=== PATIENT | female | born 1975 | race Two or more races ===

== ENCOUNTER 2019-05-13 11:22 | Emergency (ER) | payer MEDICAID ==
[~2019-05-13] VITALS: Ht 154.9 cm; Wt 77.1 kg
--- NOTE | 2019-05-13 11:40 | NUR ---
ED Nurse Note: PT AMBULATED TO ED C/O RIGHT HEEL PAIN S/P STEPPING ONTO GLASS AT [facility]. PT HAS SLIGHT FACIAL GRIMACING. FOOT IS DRESSED.
[2019-05-13 11:47] VITALS: BP 140/80
--- NOTE | 2019-05-13 11:51 | Emergency Room Report ---
History of Present Illness General Chief Complaint: Puncture Wound Source: Patient Present Illness HPI Patient is a 43-year-old female denies any significant past medical history who presents to the ER complaining of laceration to her right foot. Patient states that she was at the [facility] and a piece of glass broke cutting the bottom of her right foot. She states that they cleaned her wound at [facility]. Her last tetanus shot was 3 years ago. She complains of localized pain to the area. She is ambulating. Allergies: Coded Allergies: No Known Allergies (Unverified , 05/13/19) Patient History Past Medical History: none Past Surgical History: Social History: Denies: smoking, alcohol use, drug use Now: No Immunizations: UTD Review of Systems All Other Systems: negative except mentioned in HPI Physical Exam Vital Signs Date Time Temp Pulse Resp B/P (MAP) Pulse Ox O2 Delivery O2 Flow Rate FiO2 05/13/19 11:40 98.1 78 16 140/80 (100) 99 Room Air Sp02 EP Interpretation: reviewed, normal General Appearance: no apparent distress, alert, GCS 15, non-toxic Head: normocephalic, atraumatic Eyes: bilateral eye normal inspection, bilateral eye PERRL ENT: hearing grossly normal, normal pharynx, no angioedema, normal voice Neck: full range of motion, supple/symm/no masses Respiratory: chest non-tender, lungs clear, normal breath sounds, speaking full sentences Cardiovascular #1: regular rate, rhythm, no edema Gastrointestinal: normal bowel sounds, non tender, soft, non-distended, no guarding, no rebound Rectal: deferred Genitourinary: normal inspection, no CVA tenderness Musculoskeletal: back normal, normal range of motion, calf tenderness, other - 4 cm superficial linear laceration to right plantar heel, no active bleeding, no obvious foreign body. Neurologic: alert, motor strength/tone normal, oriented x3, sensory intact, responsive, speech normal Psychiatric: judgement/insight normal, memory normal, mood/affect normal, no suicidal/homicidal ideation Skin: no rash Lymphatic: no adenopathy Procedures Laceration/Wound Repair Laceration/Wound Repair : Consent: Verbal Wound Location: other - foot Wound Length (cm): 4 Wound Explored: clean Wound Debrided: None Wound Repaired With: Dermabond Patient Tolerated: Well Complications: None Medical Decision Making Diagnostic Impression: Primary Impression: Laceration ER Course Patient's wound irrigated and Dermabond applied. Patient declining any pain medication in the ER. Patient started on Augmentin due to her puncture wound. After discussing risks and benefits of further diagnostics, treatment plans, as well as indications for and risks of admission, the patient is agreeable to being discharged home. I have explained that their evaluation and treatment in the emergency department today is an important step towards them achieving better health but that their evaluation today is not intended to replace further evaluation and treatment by a physician in their local clinic. I have explained that while the current findings suggest no immediate life threatening emergency they will require further evaluation and treatment by a physician of their choice in their area. They understand that it will be necessary for them to review the final reports of their ED visit with their clinic physician. We have reviewed indications for return to the Emergency Department. I have explained that additional time may need to pass and/or additional testing as an outpatient may be necessary before a definitive diagnosis can be made. They tell me they are willing to follow up as instructed within the timeframe I recommend. They appear to understand what we discussed. Additionally they understand that if they are unable to be seen by an outpatient physician they are welcome, and in fact should, return to the Emergency Department for a repeat evaluation. The patient is stable at time of discharge. Other X-Ray Diagnostic Results Other X-Ray Diagnostic Results : X-Ray ordered: R foot # of Views/Limited Vs Complete: 2 View Indication: Other - RO foreign body EP Interpretation: Yes Interpretation: no dislocation, no fractures, other - no foreign body Impression: No acute disease Last Vital Signs Date Time Temp Pulse Resp B/P (MAP) Pulse Ox O2 Delivery O2 Flow Rate FiO2 05/13/19 11:47 98.1 75 16 140/80 99 Room Air Disposition: HOME, SELF-CARE Condition: Stable Scripts Amoxicillin/Potassium Clav 875-125* (AUGMENTIN 875-125 TABLET*) 1 Each Tablet 1 TAB ORAL TWICE A DAY for 7 Days, #14 TAB Prov: Theresa Hunt M.D. 05/13/19 Additional Instructions: Patient discharged in stable improved condition with outpatient follow-up Theresa Hunt M.D. May 13, 2019 11:51
[2019-05-13] MEDS ORDERED: Augmentin 875mg Tab ONE (11:57)
[2019-05-13] MEDS ORDERED: Augmentin 875mg Tab ORAL ONE (12:00)
--- NOTE | 2019-05-13 12:44 | NUR ---
ED Nurse Note: xray at bedside
[2019-05-13] MEDS ORDERED: AUGMENTIN 875-1 EAC1 ORAL (12:50)
[2019-05-13 12:59] VITALS: BP 135/79
--- NOTE | 2019-05-13 13:00 | NUR ---
ER DISCHARGE NOTE: Patient is cleared to be discharged per ERMD, pt is aox4, on room air, with stable vital signs. pt was given dc and prescription instructions, pt was able to verbalize understanding, pt id band removed. pt is able to ambulate with steady gait. pt took all belongings. foot dressed with gauze per fruit buying grader
--- NOTE | 2019-05-13 15:12 | Diagnostic Imaging Report ---
Indication: Trauma, pain Technique: 3 views right foot Comparison: none Findings: No acute fractures. No dislocations. The joint spaces are preserved. Impression: No acute bony trauma
== END 2019-05-13 13:00 | disposition home or self-care (01) ==
LOC: EMR 12:12
DX: S91.311A Laceration without foreign body, right foot, initial encounter (principal); W25.XXXA Contact with sharp glass, initial encounter; Y93.89 Activity, other specified; Y92.512 Supermarket, store or market as the place of occurrence of the external cause
CPT/HCPCS: 12002; 73630; Z7502; 99283